=== PATIENT | male | born 1955 | race African-American/Black ===

== ENCOUNTER → 2017-08-03 | Outpatient (CLI) | payer OTHER ==
[~2017-08-03] MED LIST: CHOL100013 PO; LOSA50TA6 PO
--- NOTE | 2017-08-03 10:46 | RAD ---
Indication shortness of air. Frontal and lateral views of the chest were obtained and are compared to an examination November 21, 2013. Marked pectus deformity is noted. Heart size is unchanged. There is no congestive heart failure. Chronic changes are noted at the right lung apex similar to the previous exam. There is slight blunting of the right costophrenic angle also appearing similar. A significant change in the appearance of the chest is not seen. IMPRESSION: Chronic changes. No acute finding. No significant change
== END | disposition home or self-care (01) ==
LOC: RAD 07:59
PROVIDERS: ATTEND Specialist
DX: R06.02 Shortness of breath (principal)
CPT/HCPCS: 71020